=== PATIENT | female | born 1990 | race Hispanic/Latino ===

== ENCOUNTER 2016-09-04 06:55 | Observation (INO) | payer BC ==
--- NOTE | 2016-09-03 22:59 | History and Physical Report ---
History of Present Illness Date of examination: 09/04/16 Chief complaint: Missed History of present illness: Pt is a 25 year old female primigravida LMP 06/07/16 at 12w4d by LMP found to have fetus measuring 10w2d on 08/27/16 without heart tones. She elects for surgical management. Past History Past Medical History: no pertinent history Past Surgical History: no surgical history Family/Genetic History: hypertension, stroke, cancer Social history: no significant social history Medications and Allergies Allergies Allergy/AdvReac Type Severity Reaction Status Date / Time codeine AdvReac Itching Verified 09/03/16 11:50 latex AdvReac Itching Verified 09/03/16 11:50 Home Medications Medication Instructions Recorded Confirmed Last Taken Type oxyCODONE /ACETAMINOPHEN [Percocet 1 tab PO Q6HR PRN 09/03/16 09/03/16 Unknown History ] Active Meds: Active Medications Famotidine (Pepcid) 20 mg PO PREOP NR Stop: 09/04/16 23:00 Sodium Chloride (Nacl 0.9% 1000 Ml) 1,000 mls @ 75 mls/hr IV DIRECT JOZEF Doxycycline Hyclate 100 mg/ (Sodium Chloride) 250 mls @ 250 mls/hr IV ONCE ONE PRN Reason: Protocol Stop: 09/04/16 06:59 Midazolam HCl (Versed) 2 mg IV PREOP NR Stop: 09/04/16 23:59 Review of Systems All systems: negative - Physical Exam Breasts: Positive: deferred Cardiovascular: Regular rate Lungs: Positive: Clear to auscultation Abdomen: Positive: soft Results All other labs normal. Assessment and Plan A: Missed at 10 wks P: Proceed with suction dilation and curettage and other indicated procedures.
[~2016-09-04 06:55] MED LIST: DOXYCYCLINE HYCLATE 100 MG in NACL 0.9% 250ML 250 ML IV ONE; NACL 0.9% 1000 ML 1,000 ML IV SCH; NACL BACTERIOSTATIC INFILTRATI ONE; PEPCID PO NR; VERSED IV NR
[2016-09-04] MEDS ORDERED: XYLOCAINE MPF 2% ONE (07:28)
[2016-09-04] MEDS ORDERED: SUBLIMAZE ONE (07:29)
[2016-09-04] MEDS ORDERED: DIPRIVAN 10 MG/ML IV ONE (07:29)
[2016-09-04] MEDS ORDERED: METHERGINE IM ONE ×2 (07:33→09:04)
[2016-09-04] MEDS ORDERED: SILVER NITRATE TP ONE ×2 (07:34→09:47)
--- NOTE | 2016-09-04 08:19 | Anesthesia Consultation ---
Anesthesia Consult and Med Hx Date of service: 09/04/16 - Airway Anesthetic Teeth Evaluation: Dentures (upper) ROM Head & Neck: Adequate Mental/Hyoid Distance: Adequate Mallampati Class: Class I Intubation Access Assessment: Good - Pulmonary Exam CTA: Yes - Cardiac Exam Cardiac Exam: RRR - Pre-Operative Health Status ASA Pre-Surgery Classification: ASA2 Proposed Anesthetic Plan: General - Pulmonary Hx Smoking: Yes (CIGARETTES 1/2 PPD X 11 YRS, QUIT 3 WKS AGO)
--- NOTE | 2016-09-04 08:19 | Anesthesia Day of Surgery ---
Anesthesia Day of Surgery - Day of Surgery Patient Examined: Yes Patient H&P Reviewed: Yes Patient is NPO: Yes
[2016-09-04 08:37] LABS: Hematocrit 36.9 % (30.3-42.9); Hemoglobin 12.3 gm/dl (10.1-14.3); Mean Corpuscular HGB Conc 33 % (30-34); Mean Corpuscular Hemoglobin 31 pg (28-32); Mean Corpuscular Volume 92 fl (79-97); Platelet Count 188 K/mm3 (140-440); Red Blood Count 4.01 M/mm3 (3.65-5.03); Red Cell Distribution Width 12.6 % (13.2-15.2); White Blood Count 14.2 K/mm3 (4.5-11.0)
[2016-09-04] MEDS ORDERED: NACL 0.9% IR ONE (09:05)
[2016-09-04] MEDS ORDERED: DECADRON ONE (09:08)
[2016-09-04] MEDS ORDERED: ZOFRAN ONE (09:08)
--- NOTE | 2016-09-04 09:08 | Ultrasound Report ---
ULTRASOUND OB LIMITED History: Viability, well being Technique: Transabdominal ultrasound with Doppler interrogation. Gestation: Single Heart Rate: 0 BPM Argyle-rump length measures 3.11 cm which correlates with a 10 week, 0 day . Impression: demise.
[2016-09-04] MEDS ORDERED: CYTOTEC VG ONE (10:00)
[2016-09-04] MEDS ORDERED: NEO SYNEPHRINE/NS Syringe(OR USE) IV ONE (10:00)
--- NOTE | 2016-09-04 10:03 | Operative Report ---
Operative Report Operative Report: Date of Procedure: September 04, 2016 Preoperative Diagnosis: Missed at 10 wks Postoperative Diagnosis: Same Procedure: Suction Dilation of Curettage Surgeon: Kasie Diaz MD Anesthesia: General with LMA Findings: Anteverted uterus 12-14 wks in size; Sounds to 13 cm EBL: 1000 mL IVF: 1000 mL Urine output: 250 mL of ingrid colored urine prior to the procedure Specimen: Products of conception to pathology Complications: Intraoperative hemorrhage Medications: Methergine 0.2 mg IM and Cytotec 800 mcg per rectum Drains: None Disposition: Stable to PACU Indication for Procedure: Pt is a 25 year old female primigravida who presents for surgical management of missed at 10 wks. Operation in Detail: After the risks, benefits, alternatives and complications were explained to the patient, she gave informed consent for the procedure. She was taken to the operating room with her iV noted to be running well and placed in the dorsal supine position. SCDs were noted to be in place and functioning. General anesthesia was induced without difficulty. The patient was then placed in the dorsal lithotomy position and an exam under anesthesia revealed a 12-14 wk sized uterus. She was then prepped and draped in a normal sterile fashion. A timeout was performed. The catheter was used to drain the bladder of 250 mL of ingrid colored urine. A bi-valve speculum was placed in the vagina for adequate visualization of the cervix. A single-tooth tenaculum was placed on the anterior lip of the cervix. The uterus was then gently sounded to 13 cm. Louie dilators were used to serially dilate the cervix to a number 31. As soon as the dilation began, heavy vaginal bleeding ensued. A size 10 rigid canula was used with suction to evacuate the uterus. Zamora through the procedure, Methergine 0.2 mg IM was given. Once evacuation was complete, the single tooth tenaculum was removed from the cervix. Silver nitrate was used to cauterize the tenaculum puncture sites. Hemostasis was noted. All instruments were then removed from the vagina. 800 mcg of cytotec were placed per rectum to assure continued hemostasis. At this time the procedure was ended. The patient was returned to the dorsal supine position and extubated without difficulty. She was subsequently taken to the PACU in stable condition. All instruments and lap counts are correct x 2. The patient will be admitted for observation and repeat hemoglobin and hematocrit.
--- NOTE | 2016-09-04 10:05 | Post Anesthesia Evaluation ---
- Post Anesthesia Evaluation Patient Participated: Yes Airway Patent: Yes Stable Respiratory Function: Yes Nausea/Vomiting: No Temp > 96.8F: Yes Pain Manageable: Yes Adequeate Hydration: Yes Anesthesia Complications: No Block Receding Appropriately: Not Applicable Patient on Ventilator: No
[2016-09-04] MEDS ORDERED: DILAUDID ONE (10:06)
[2016-09-04] MEDS ORDERED: ARTIFICIAL TEARS OPHTH OINT ONE (10:35)
[2016-09-04] MEDS ORDERED: TORADOL IV PRN (11:00)
[2016-09-04] MEDS ORDERED: NORCO 7.5/325 PO PRN (11:00)
[2016-09-04] MEDS ORDERED: DEMEROL IV PRN (11:00)
[2016-09-04] MEDS ORDERED: VERSED IV ONE (11:00)
[2016-09-04] MEDS ORDERED: MOTRIN PO PRN (11:00)
[2016-09-04 12:50] VITALS: BP 110/60
[2016-09-04] MEDS ORDERED: MORPHINE IV ONE ×2 (16:00→19:45)
[2016-09-04 19:25] LABS: Hematocrit 24.9 % (30.3-42.9); Hemoglobin 8.2 gm/dl (10.1-14.3)
--- NOTE | 2016-09-04 19:48 | Event Note ---
Date: 09/04/16 Called by RN with multiple requests by the patient to go home. She has been out to smoke cigarettes. I spoke with the pt and denies any dizziness while ambulating. Per her preference, the pt will be discharged today with follow up next week in the office.
--- NOTE | 2016-09-04 19:52 | Discharge Summary ---
Providers - Providers Date of Admission: 09/04/16 10:05 Date of discharge: 09/04/16 Attending physician: KALYAN DIAZ Primary care physician: REX DUVALL MD Hospitalization Reason for admission: other (Observation after intraoperative hemorrhage) Procedure: other (Suction dilation and curettage) Procedure details: Please see operative note. Discharge diagnosis: other (Missed , Anemia) Hospital course: Pt underwent suction and dilation and curettage complicated by intraoperative hemorrhage. She was observed for 8 hrs during which time the pt reported that she wanted to go home and went outside to smoke cigarettes without dizziness. She was discharged home with follow up next week with Dr Diaz. Condition at discharge: Stable Disposition: - TO HOME OR SELFCARE - Discharge Diagnoses (1) Missed Status: Acute (2) Anemia Status: Acute Qualifiers: Anemia type: other cause Iron deficiency anemia type: I Vitamin B12 deficiency anemia type: V Folate deficiency anemia type: F Bone marrow failure anemia type: B Hemolytic anemia type: H Other causes of anemia: acute posthemorrhagic Chronic kidney disease stage: C Qualified Code(s): D62 - Acute posthemorrhagic anemia Plan - Discharge Medications Prescriptions: Doxycycline [Vibramycin CAP] 100 mg PO Q12HR #14 capsule Ibuprofen [Motrin] 800 mg PO Q8HR PRN #30 tablet PRN Reason: Pain Oxycodone HCl/Acetaminophen [Percocet 7.5/325 mg] 1 each PO Q6HR PRN #30 tablet PRN Reason: Pain - Provider Discharge Summary Activity: routine, no heavy lifting 4 weeks, other (nothing in vagina x 4 wks) Diet: routine Instructions: routine Additional instructions: [] Smoking cessation referral if applicable(refer to patient education folder for contact #) [] Refer to [facility] Booklet Call your doctor immediately for: * Fever > 100.5 * Heavy vaginal bleeding ( >1 pad per hour) * Severe persistent headache * Shortness of breath * Reddened, hot, painful area to leg or breast * Drainage or odor from incision. * Keep incision clean and dry at all times and follow doctor's instructions regarding bathing/showering - Follow up plan Follow up: PRIMARY CARE, [Primary Care Provider] - 7 Days
== END 2016-09-04 21:00 | disposition home or self-care (01) ==
LOC: OR 06:55 → OB 10:05
PROVIDERS: ADMIT Obstetrics & Gynecology; ATTEND Obstetrics & Gynecology
DX: O02.1 Missed abortion (principal); D64.9 Anemia, unspecified; T81.89XA Other complications of procedures, not elsewhere classified, initial encounter; Z87.891 Personal history of nicotine dependence; Z3A.10 10 weeks gestation of pregnancy; Z82.49 Family history of ischemic heart disease and other diseases of the circulatory system; Z80.9 Family history of malignant neoplasm, unspecified; Z82.3 Family history of stroke
CPT/HCPCS: 36415; 59820; 76815; 85014; 85018; 85027; 86850; 86900; 86901; 88305; 96374; 96375; 96376; G0378; J1100; J1170; J1885; J2175; J2210; J2250; J2270; J2370; J2405; J2704; J3010; J7030; J7050